=== PATIENT | female | born 1945 | race Native Hawaiian/Other Pacific Islander ===

== ENCOUNTER 2018-06-10 08:38 | Outpatient (CLI) | payer MEDICARE | END 2018-06-10 08:39 | disposition home or self-care (01) | LOC: RAD 08:38 ==

== ENCOUNTER 2018-09-12 11:46 | Outpatient (CLI) | payer MEDICARE | END 2018-09-12 11:47 | disposition home or self-care (01) | LOC: RAD 11:46 ==

== ENCOUNTER 2018-09-25 08:25 | Outpatient (CLI) | payer MEDICARE | END 2018-09-25 08:26 | disposition home or self-care (01) | LOC: RAD 08:25 ==